=== PATIENT | female | born 1960 | race Caucasian/White ===

== ENCOUNTER 2016-11-05 07:49 | Emergency (ER) | payer OTHER ==
[~2016-11-05] VITALS: Wt 90.0 kg
[~2016-11-05 07:49] MED LIST: ATOR20TA38 PO; CLON1TAB3 PO; DULO20CA17 PO; PANT40TA3 PO
--- NOTE | 2016-11-05 08:51 | RADRPT ---
PROCEDURE: XR Chest. CLINICAL INDICATION: Chest pain. TECHNIQUE: Single frontal view of the chest was obtained. COMPARISON: None. FINDINGS: Cardiomediastinal silhouette appears normal Pulmonary vasculature appears normal. Lung ferreira appear clear. Costophrenic angles are well defined. The osseous elements appear intact. IMPRESSION: 1. No evidence for active cardiopulmonary disease. RPTAT: [facility] Physician Herminia Date Time Electronically viewed and signed by Bernard Henry Physician on 11/05/2016 08:51 /
[2016-11-05 09:51] LABS: BASOPHILS % 0.5 % (0.0-2.0); EOSINOPHILS # 0.1 10^3/ul (0.0-0.5); EOSINOPHILS % 1.1 % (0.0-7.0); HEMATOCRIT 41.3 % (37.0-47.0); HEMOGLOBIN 13.9 g/dl (12.0-16.0); LYMPHOCYTES # 2.2 10^3/ul (0.8-2.9); LYMPHOCYTES % 36.7 % (15.0-51.0); MEAN CORPUSCULAR HEMOGLOBIN 30.2 pg (29.0-33.0); MEAN CORPUSCULAR HGB CONC 33.8 g/dl (32.0-37.0); MEAN CORPUSCULAR VOLUME 89.4 fl (82.0-101.0); MEAN PLATELET VOLUME 9.1 fl (7.4-10.4); MONOCYTE # 0.4 10^3/ul (0.3-0.9); MONOCYTES % 7.2 % (0.0-11.0); NEUTROPHIL # 3.2 10^3/ul (1.6-7.5); NEUTROPHILS % 54.5 % (39.0-77.0); PLATELET COUNT 240 10^3/UL (140-440); RED BLOOD COUNT 4.62 10^6/ul (4.20-5.40); RED CELL DISTRIBUTION WIDTH 13.1 % (11.5-14.5); UNCORRECTED WBC 5.9 10^3/ul (4.8-10.8); WHITE BLOOD COUNT 5.9 10^3/ul (4.8-10.8)
[2016-11-05 09:55] LABS: CONDITION 1
[2016-11-05 09:56] LABS: CHLORIDE 103 mmol/L (97-110)
[2016-11-05 09:57] LABS: POTASSIUM 3.7 mmol/L (3.5-5.1); SODIUM 145 mmol/L (135-144)
[2016-11-05 09:59] LABS: CREATININE 0.69 mg/dl (0.44-1.00)
[2016-11-05 10:00] LABS: ANION GAP 17 (8-16); BLOOD UREA NITROGEN 12 mg/dl (7-20); CALCIUM 8.9 mg/dl (8.4-10.2); CARBON DIOXIDE 29 mmol/L (21-31); GLUCOSE 95 mg/dl (70-220); INR 1.03; PARTIAL THROMBOPLASTIN TIME 27.9 Sec (25.0-35.0); PROTIME 13.5 Sec (12.2-14.2); PT RATIO 1.1
[2016-11-05 10:18] LABS: TROPONIN-I < 0.012 ng/ml (0.00-0.12)
[2016-11-05] MEDS ORDERED: IBUP800T25 PO (10:30)
--- NOTE | 2016-11-05 10:30 | ERD ---
ER Documentation Chief Complaint Date/Time DATE: 11/05/16 TIME: 10:27 Chief Complaint CHEST PAIN FOR 4 DAYS, NON PROVOKED. NO NAUSEA NO VOMITING HPI This is a 56-year-old female presents to the emergency room for evaluation of chest pain. The patient states that she has had chest pain constant for 4 days. Nonexertional, no aggravating or relieving factors. No associated palpitations or shortness of breath and came to the ER today for evaluation ROS All systems reviewed and are negative except as per history of present illness. Medications Home Meds Reported Medications Clonazepam* (Clonazepam*) 1 Mg Tablet, 1 MG PO QHS Y for ANXIETY, TAB 07/18/16 Duloxetine Hcl* (Duloxetine Hcl*) 20 Mg Capsule.dr, 20 MG PO DAILY, #30 CAP 07/18/16 Pantoprazole* (Protonix*) 40 Mg Tablet.dr, 40 MG PO DAILY, TAB 05/19/16 Atorvastatin Calcium* (Atorvastatin Calcium*) 20 Mg Tablet, 20 MG PO QHS, #30 TAB 05/19/16 Allergies Allergies: Coded Allergies: No Known Allergy (Unverified , 07/18/16) PMhx/Soc History of Surgery: Yes (R SHOULDER,R KNEE, TUBAL LIGATION,) Anesthesia Reaction: No Hx Neurological Disorder: Yes (OCCASIONAL MIGRAINES) Hx Respiratory Disorders: No Hx Cardiac Disorders: No Hx Psychiatric Problems: Yes (ANXIETY) Hx Miscellaneous Medical Probl: Yes (HIGH CHOLESTEROL, firbomialgia ) Hx Alcohol Use: No Hx Substance Use: No Hx Tobacco Use: No Smoking Status: Never smoker Physical Exam Vitals Vital Signs Date Time Temp Pulse Resp B/P Pulse Ox O2 Delivery O2 Flow Rate FiO2 11/05/16 08:32 67 16 115/65 99 Room Air 11/05/16 08:01 98.4 87 20 116/69 97 Physical Exam INITIAL VITAL SIGNS: Reviewed by me GENERAL: The patient is well developed and appropriate for usual state of health in no apparent distress HEENT: Pupils equal, round, and reactive to light. EOMI. There is no scleral icterus. NECK: C-spine is soft and supple, there is no meningismus. There is no cervical lymphadenopathy. LUNGS: Clear to auscultation bilaterally. There are no rales, wheezes or rhonchi. HEART: Regular rate and rhythm, no murmurs, clicks, rubs or gallops. ABDOMEN: Soft, non-tender, non-distended. There are bowel sounds in all four quadrants. No rebound or guarding. EXTREMITIES: There is no peripheral cyanosis or edema. No focal swelling or erythema. NEUROLOGICAL: The patient moves all four extremities with 5/5 strength. Cranial nerves II - XII are intact. Normal gait. Alert and oriented SKIN: There is no apparent rash or petechiae. HEME/LYMPHATIC: There is no evidence of excessive bruising or lymphedema. PSYCHIATRIC: The patient does not appear anxious or depressed. Result Diagram: 11/05/1682911/05/1630 Results 24 hrs Laboratory Tests Test 11/05/16 08:30 Activated Partial Thromboplast Time 27.9Sec Anion Gap 17 Basophils # 0.010^3/ul Basophils % 0.5% Blood Urea Nitrogen 12mg/dl Calcium Level 8.9mg/dl Carbon Dioxide Level 29mmol/L Chloride Level 103mmol/L Creatinine 0.69mg/dl Eosinophils # 0.110^3/ul Eosinophils % 1.1% Glucose Level 95mg/dl Hematocrit 41.3% Hemoglobin 13.9g/dl INR International Normalized Ratio 1.03 Lymphocytes # 2.210^3/ul Lymphocytes % 36.7% Mean Corpuscular Hemoglobin 30.2pg Mean Corpuscular Hemoglobin Concent 33.8g/dl Mean Corpuscular Volume 89.4fl Mean Platelet Volume 9.1fl Monocytes # 0.410^3/ul Monocytes % 7.2% Neutrophils # 3.210^3/ul Neutrophils % 54.5% Nucleated Red Blood Cells # 0.010^3/ul Nucleated Red Blood Cells % 0.0/100WBC Platelet Count 31208^3/UL Potassium Level 3.7mmol/L Prothrombin Time 13.5Sec Prothrombin Time Ratio 1.1 Red Blood Count 4.6210^6/ul Red Cell Distribution Width 13.1% Sodium Level 145mmol/L Troponin I < 0.012ng/ml White Blood Count 5.910^3/ul Procedures/MDM EKG: Rate/Rhythm: [Normal Sinus Rhythm] QRS, ST, T-waves: [No changes consistent w/ acute ischemia] Impression: [No evidence of ischemia or arrhythmia] Chest X-ray 1V Interpreted by me: Soft Tissue: No acute abnormalities Bones: No acute abnormalities Mediastinum/Cardiac Silhouette/Lungs: [No acute abnormalities] This 56-year-old female presents to the ER for evaluation of chest pain. This patient has had chest pain for 4 days. Chest pain is worse with deep inspiration. I do feel her symptoms are muscular in nature. However given her age I did recommend the patient follow-up as an outpatient for a stress test. She verbalized understanding and is okay the plan of care. Patient will be discharged home with a prescription for Motrin Departure Diagnosis: Primary Impression: Chest pain Condition: Stable GERALDINE RODRIGUEZ DO Nov 05, 2016 10:29
[2016-11-05 10:37] VITALS: BP 119/58; PULSE 58; RESP 16; TEMP 98.3
== END 2016-11-05 10:38 | disposition home or self-care (01) ==
LOC: E/R 07:49
DX: R07.9 Chest pain, unspecified (principal); R40.2252 Coma scale, best verbal response, oriented, at arrival to emergency department; R40.2362 Coma scale, best motor response, obeys commands, at arrival to emergency department; R40.2142 Coma scale, eyes open, spontaneous, at arrival to emergency department
CPT/HCPCS: 36415; 71010; 80048; 84484; 85025; 85610; 85730; 93005